=== PATIENT | male | born 1995 | race Two or more races ===

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

== ENCOUNTER 2019-05-15 08:54 | Emergency (ER) | payer SELFPAY ==
[~2019-05-15] VITALS: Ht 170.2 cm; Wt 80.3 kg
[~2019-05-15 08:54] MED LIST changes: +HYDROCODON-ACE1 EA15 ORAL; +POLYTRIM OP SOL10 ML OPHTHALM
[2019-05-15 09:01] VITALS: BP 132/89
--- NOTE | 2019-05-15 09:10 | NUR ---
ED Nurse Note: patient walked into ED from home accompanied by his mother c/o his right testicle goes up to his groin area and he feels uncomfortable about it. patient denies pain. patient reports it happenend 1 month before and it started happening again last night. patient placed in a hopsital gown. mother at bedside.
--- NOTE | 2019-05-15 09:23 | NUR ---
ED Nurse Note: UA SENT TO LAB
[2019-05-15 09:47] LABS: APPEARANCE,URINE CLEAR; BILIRUBIN, URINE NEGATIVE (NEGATIVE); COLOR,URINE PALE YELLOW; GLUCOSE, URINE (UA) NEGATIVE (NEGATIVE); KETONES,URINE NEGATIVE (NEGATIVE); LEUKOCYTE ESTERASE ,URINE NEGATIVE (NEGATIVE); NITRITE,URINE NEGATIVE (NEGATIVE); PH,URINE 6.5 (4.5-8.0); PROTEIN,URINE NEGATIVE (NEGATIVE); UROBILINOGEN,URINE NORMAL MG/DL (0.0-1.0)
--- NOTE | 2019-05-15 09:55 | NUR ---
ED Nurse Note: US at bedside
--- NOTE | 2019-05-15 11:09 | Diagnostic Imaging Report ---
Indication: Right testicular and groin pain Technique: Multiplanar grayscale and duplex Doppler imaging of the scrotum/testicles Comparison: None Findings: Some prominent nonspecific lymph nodes are identified in the right inguinal region. These demonstrate maintained architecture with preserved fatty samuel. Raphae view of the testicles demonstrates symmetric color flow. The right testicle measures 3.3 x 2.2 x 4.8 cm/23.5 mL. Right testicular echogenicity is homogeneous. No discrete mass is identified in the right testicle. Color and Doppler flow in the right testicle is documented and symmetric when compared to the left. A 0.5 cm simple appearing cyst is noted within the right epididymis. Right epididymis is otherwise unremarkable in appearance. No abnormal epididymal hyperemia. No evidence of varicocele or hydrocele on the right. The left testicle measures 4.7 x 2 x 3.4 centers/20.5 mL. Left testicular echogenicity is homogeneous. No discrete masses identified on left testicle. Color and Doppler flow in the left testicle is documented and symmetrical compared to the right. The left epididymis is normal in appearance. No abnormal hyperemia noted in the left epididymis. No evidence of varicocele or hydrocele on the left. No abnormal scrotal thickening or appreciable foci of subcutaneous gas. IMPRESSION: * Symmetric color and Doppler flow visualized in the bilateral testicles. * No testicular mass lesion or evidence to suggest epididymoorchitis. * 0.5 cm simple appearing cyst in the right epididymis. * Some prominent nonspecific right inguinal lymph nodes are noted. Visualized lymph nodes maintain normal architecture with preserved fatty samuel.
--- NOTE | 2019-05-15 11:31 | Emergency Room Report ---
History of Present Illness General Chief Complaint: Male Urogenital Problems Source: Patient Present Illness HPI Patient states that over the past couple months he has noted that his right testicle moves around. He states it will move up a little higher and sometimes go to the side. He denies pain. He states it is not currently moved. He has no pain at this time. He denies fever or chills. He denies dysuria hematuria. He has no other complaints. Allergies: Coded Allergies: No Known Allergies (Unverified , 10/11/12) Patient History Past Medical History: none Social History: Reports: drug use Reviewed Nursing Documentation: PMH: Agreed; PSxH: Agreed Nursing Documentation-PMH Past Medical History: No Stated History Review of Systems All Other Systems: negative except mentioned in HPI Physical Exam Vital Signs Date Time Temp Pulse Resp B/P (MAP) Pulse Ox O2 Delivery O2 Flow Rate FiO2 05/15/19 09:01 98.4 97 16 132/89 95 Room Air Sp02 EP Interpretation: reviewed, normal General Appearance: no apparent distress, alert, GCS 15, non-toxic Head: normocephalic, atraumatic Eyes: bilateral eye normal inspection ENT: hearing grossly normal, no angioedema, normal voice Neck: normal inspection Respiratory: no respiratory distress, no retraction, no accessory muscle use, speaking full sentences Gastrointestinal: normal bowel sounds, non tender, soft, non-distended, no guarding, no rebound Rectal: deferred Genitourinary: normal inspection, no CVA tenderness, penis normal, other - R. testicle normal size and normal to palpation. No swelling or erythema. Musculoskeletal: back normal, normal range of motion, calf tenderness, gait/ station normal, non-tender Neurologic: alert, motor strength/tone normal, oriented x3, sensory intact, responsive, speech normal Psychiatric: judgement/insight normal, memory normal, mood/affect normal, no suicidal/homicidal ideation Skin: no rash Medical Decision Making Diagnostic Impression: Primary Impression: Hypermobile Testicle ER Course This patient has a normal testicular exam and a normal testicular ultrasound. There is no evidence of orchitis, mass or epididymitis based on physical exam, urinalysis and testicular ultrasound. 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 He states that it can be surgically repaired if the patient desires but is not necessary. The patient was educated on the signs and symptoms of testicular torsion. There is no evidence of testicular torsion at this time. The patient is given close return precautions and follow-up instructions. Laboratory Tests Test 05/15/19 09:19 Urine Color Pale yellow Urine Appearance Clear Urine pH 6.5 (4.5-8.0) Urine Specific [place] 1.005 (1.005-1.035) Urine Protein Negative (NEGATIVE) Urine Glucose (UA) Negative (NEGATIVE) Urine Ketones Negative (NEGATIVE) Urine Blood Negative (NEGATIVE) Urine Nitrite Negative (NEGATIVE) Urine Bilirubin Negative (NEGATIVE) Urine Urobilinogen Normal MG/DL (0.0-1.0) Urine Leukocyte Esterase Negative (NEGATIVE) Urine Opiates Screen Negative (NEGATIVE) Urine Barbiturates Screen Negative (NEGATIVE) Phencyclidine (PCP) Screen Negative (NEGATIVE) Urine Amphetamines Screen Positive (NEGATIVE) H Urine Benzodiazepines Screen Negative (NEGATIVE) Urine Cocaine Screen Negative (NEGATIVE) Urine Marijuana (THC) Screen Negative (NEGATIVE) CT/MRI/US Diagnostic Results CT/MRI/US Diagnostic Results : Imaging Test Ordered: Testicular US Impression Within normal limits. See official report in electronic medical record. Last Vital Signs Date Time Temp Pulse Resp B/P (MAP) Pulse Ox O2 Delivery O2 Flow Rate FiO2 05/15/19 09:01 98.4 97 16 132/89 (103) 95 Room Air Status: improved Disposition: HOME, SELF-CARE Condition: Improved Referrals: NOT CHOSEN IPA/,REFERRING (PCP) Patient Instructions: Scrotal Swelling Mayra Burns DO May 15, 2019 11:31
[2019-05-15 11:40] VITALS: BP 132/89
--- NOTE | 2019-05-15 11:40 | NUR ---
ER DISCHARGE NOTE: Patient is cleared to be discharged per ESTEBAN YANG, pt is aox4, on room air, with stable vital signs. pt was given dc instructions, drug/rehab information provided to the patient /mother. they verbalized understanding. pt was able to verbalize understanding, pt id band removed without complications. pt is able to ambulate with steady gait. pt took all belongings.
== END 2019-05-15 11:40 | disposition home or self-care (01) ==
LOC: EMR 09:20
DX: M35.7 Hypermobility syndrome (principal)
CPT/HCPCS: 76870; 80307; 81003; 99284

== ENCOUNTER 2020-04-17 18:24 | Emergency (ER) | payer SELFPAY ==
[~2020-04-17] VITALS: Ht 170.2 cm; Wt 79.4 kg
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
[2020-04-17 18:43] VITALS: BP 154/91
--- NOTE | 2020-04-17 18:45 | NUR ---
ED Nurse Note: ERPA at bedside.
[2020-04-17] MEDS ORDERED: Surgicel 4in x 8in TOPIC ONE (19:00)
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
--- NOTE | 2020-04-17 19:23 | Diagnostic Imaging Report ---
EXAM: XR Right Femur, 2 Views CLINICAL HISTORY: TRAUMA TECHNIQUE: Frontal and lateral views of the right femur. COMPARISON: No relevant prior studies available. FINDINGS: Bones/joints: Unremarkable. No acute fracture. No dislocation. Soft tissues: Unremarkable. IMPRESSION: Normal right femur x-rays.
[2020-04-17] MEDS ORDERED: Lidocaine 1% 10mg/ml/Epi 0.005mg/ml 30ml vial INJ ONE (19:25)
[2020-04-17] MEDS ORDERED: Lidocaine 1%/ 10mg/ml/EPI 0.01mg/ml 20ml INJ ONE ×2 (19:30)
[2020-04-17] MEDS ORDERED: AUGMENTIN 875-1 EAC1 ORAL (19:31)
[2020-04-17] MEDS ORDERED: IBU800 MG PO (19:31)
[2020-04-17 19:50] VITALS: BP 136/88
--- NOTE | 2020-04-17 19:50 | NUR ---
ER DISCHARGE NOTE: Patient is cleared to be discharged per ERMD, pt is aox4, on room air, with stable vital signs. pt was given dc and prescription instructions, pt was able to verbalize understanding, pt id band removed without complications. pt is able to ambulate with steady gait. pt took all belongings.
[2020-04-17 19:58] VITALS: BP 154/91
== END 2020-04-17 20:00 | disposition home or self-care (01) ==
LOC: EMR 18:48
DX: S71.111A Laceration without foreign body, right thigh, initial encounter (principal); W22.8XXA Striking against or struck by other objects, initial encounter; Y93.89 Activity, other specified; Y92.9 Unspecified place or not applicable
CPT/HCPCS: 99283